=== PATIENT | male | born 1950 | race Caucasian/White ===

== ENCOUNTER 2019-11-01 10:52 | Outpatient (CLI) | payer MEDICARE, SELFPAY ==
--- NOTE | ~2019-11-01 | CT_ITS ---
EXAMINATION: CT lung screening DATE: 11/01/2019 11:22 INDICATION: Personal history of tobacco dependence, current smoker with 40 pack year history TECHNIQUE: Computed tomography (CT) of the chest was performed without intravenous contrast. The dose -length product (DLP) was 104.17 mGy-cm. Automated exposure control and iterative reconstruction tech [employer] were employed. COMPARISON: 08/28/2014 FINDINGS: There is an 8 mm nodule of the left upper lobe on image 44. There is a 3 mm nodule of the l eft upper lobe on image 54. There is a 6 mm nodule of the right upper lobe on image 30. A 4 mm nodule is present in the right upper lobe on image 28. There is severe emphysema. A chronic 7.7 cm bulla is present in the right middle lobe which now demonstrates an air-fluid level. There is no pleural effu shaquille or pneumothorax. Calcified coronary artery atherosclerosis is noted. The heart size is normal. T here are no pathologically enlarged thoracic lymph nodes. There are bridging osteophytes at multiple levels in the spine, consistent with diffuse idiopathic skeletal hyperostosis (DISH). IMPRESSION: 1. Lung-RADS category 4A: Suspicious. Followup with noncontrast low-dose chest CT in 3 months is jose mmended. Reviewed, dictated and finalized at location A. [facility] IMPRESSION: 1. Lung-RADS category 4A: Suspicious. Followup with noncontrast low-dose chest CT in 3 months is recommended.
[2019-11-01 12:39] LABS: Basophils Percent Auto 0.4 % (0.2-1.2); Eosinophils Absolute Auto 0.1 K/mm3 (0-0.3); Eosinophils Percent Auto 0.9 % (0-4.4); Hematocrit 51.7 % (42.0-52.0); Hemoglobin 16.9 g/dL (14.0-18.0); Immature Granulocyte Absolute 0.06 K/mm3 (0.00-0.031); Immature Granulocyte Percent A 0.6 % (0-0.5); Lymphocytes Percent Auto 14.7 % (18.3-44.2); Mean Corpuscular HGB Conc 32.7 g/dl (32-36); Mean Corpuscular Hemoglobin 30.6 pg (26-34); Mean Corpuscular Volume 93.5 fl (80-100); Mean Platelet Volume 10.8 fl (7.4-10.4); Monocytes Absolute Auto 0.9 K/mm3 (0.1-0.6); Monocytes Percent Auto 8.9 % (2.6-8.5); Neutrophils Absolute Auto 7.6 K/mm3 (1.3-6.7); Neutrophils Percent Auto 74.5 % (45.5-73.1); Platelet Count Result 281 k/mm3 (150-375); Red Blood Count 5.53 M/mm3 (4.6-6.20); Red Cell Distribution Width 13.7 % (11.5-14.5); White Blood Count 10.2 K/mm3 (4.5-10.0)
[2019-11-01 12:44] LABS: Alanine Aminotransferase 18 U/L (4-50); Albumin Level 4.2 g/dL (3.5-5.1); Alkaline Phosphatase 72 U/L (38-126); Aspartate Amino Transferase 21 U/L (17-59); Bilirubin,Total 0.5 mg/dL (0.2-1.3); Blood Urea Nitrogen 16 mg/dL (9-20); Calcium 9.2 mg/dL (8.4-10.2); Carbon Dioxide 31 mmol/L (22-30); Chloride 97 mmol/L (98-107); Cholesterol 206 mg/dL (0-200); Estimated Glomerular Filt Rate > 60; Glucose 111 mg/dL (75-110); HDL Direct 72 mg/dL; Potassium 4.1 mmol/L (3.4-5.0); Sodium 136 mmol/L (137-145); Triglycerides 75 mg/dL (<150)
[2019-11-01 12:55] LABS: Creatinine Urine 27.4 mg/dL; LDL Cholesterol Direct 108 mg/dL
[2019-11-01 12:59] LABS: MALB Creatinine Ratio 99.6 mg/g (0-30); Microalbumin Urine Random 27.3 mg/L (0-16.7)
[2019-11-01 13:11] LABS: Vitamin D 25 Hydroxy 18.1 ng/mL
[2019-11-01 13:13] LABS: Prostate Specific Antigen 0.6 ng/mL (< OR = 4.0); Total Triiodothyronine (T3) 1.18 NG/ML (0.97-1.69)
== END 2019-11-01 10:53 | disposition home or self-care (01) ==
PROVIDERS: PCP Family Medicine; Visit Provider Nurse Practitioner Family
DX: Z12.2 Encounter for screening for malignant neoplasm of respiratory organs (principal); Z87.891 Personal history of nicotine dependence; R91.8 Other nonspecific abnormal finding of lung field; I10 Essential (primary) hypertension; R53.83 Other fatigue; Z12.5 Encounter for screening for malignant neoplasm of prostate; Z13.220 Encounter for screening for lipoid disorders; R80.9 Proteinuria, unspecified; E55.9 Vitamin D deficiency, unspecified
CPT/HCPCS: 36415; 80053; 80061; 82043; 82306; 84153; 84439; 84443; 84480; 85025; G0103; G0297

== ENCOUNTER 2019-11-14 14:18 | Outpatient (CLI) | payer MEDICARE, SELFPAY ==
--- NOTE | 2019-11-14 16:13 | WPDPFTINT ---
PFT Interpretation PFT Interpretation: DOS: 11/14/2019 REQUESTING: Rehan Pate MD REASON FOR TESTING: COPD PULMONARY FUNCTION TESTS Results are reproducible. Spirometry: Moderate decrease in FEV1 58% predicted. Normal FVC 98%. Decreased FEV1% 41% predicted consistent with airflow obstruction. No change with bronchodilator. Lung volumes: Increased TLC 144% consistent with hyperinflation. Increased RV 211%, severe air trapping. Airway resistance increased 174%. Diffusion: DLCO is moderately decreased 44%. Flow volume loop: Scooping of the expiratory limb. IMPRESSION: Moderately severe obstructive ventilatory impairment, moderate hyperinflation, severe air trapping, moderate diffusion impairment. No change with bronchodilator. This pattern is consistent with emphysema. Lack of response to bronchodilator should not preclude use if clinically indicated. Ashley Arnold MD
== END 2019-11-14 14:19 | disposition home or self-care (01) ==
PROVIDERS: PCP Family Medicine; Visit Provider Family Medicine
DX: J44.1 Chronic obstructive pulmonary disease with (acute) exacerbation (principal); R94.2 Abnormal results of pulmonary function studies
CPT/HCPCS: 94060; 94726; 94729

== ENCOUNTER 2020-03-14 14:41 | Outpatient (CLI) | payer MEDICARE, SELFPAY ==
--- NOTE | ~2020-03-14 | CT_ITS ---
EXAMINATION:CT chest w con DATE: 03/14/2020 15:25 INDICATION: Solitary lung nodule. TECHNIQUE: Computed tomography (CT) of the chest was performed with 75 mL Omnipaque 350 intravenous c ontrast. Automated exposure control and iterative reconstruction technique were employed. The dose-le ngth product (DLP) was 237.77 mGy-cm. COMPARISON: Chest CT 11/01/2019, 08/28/2014 FINDINGS: There is severe emphysema. There is a fluid-filled bulla in right middle lobe measuring 6.5 x 6.1 x 4.5 cm. There is mild atelectasis in left upper lobe. There is a stable 5 mm nodule in right upper lobe. There is a 7 mm nodule in left upper lobe, stable from 11/01/2019. Calcified left lung no dules are consistent with old granulomatous disease. No pleural effusion. The heart size is normal. T here are coronary artery calcifications. No pericardial effusion. There is a 9 mm cyst in left kidney . There are bridging endplate osteophytes at multiple levels in the spine, consistent with diffuse id iopathic skeletal hyperostosis (DISH). IMPRESSION: 1. Lung-RADS category 2: Benign appearance or behavior. Continue annual screening with noncontrast lo w-dose chest CT in 12 months. Reviewed, dictated and finalized at location A. IMPRESSION: 1. Lung-RADS category 2: Benign appearance or behavior. Continue annual screeni ng with noncontrast low-dose chest CT in 12 months.
[2020-03-14 15:11] LABS: Estimated Glomerular Filt Rate > 60
== END 2020-03-14 14:42 | disposition home or self-care (01) ==
PROVIDERS: PCP Family Medicine; Visit Provider Family Medicine
DX: R91.1 Solitary pulmonary nodule (principal)
CPT/HCPCS: 36415; 71260; Q9967

== ENCOUNTER 2021-04-29 07:42 | Outpatient (CLI) | payer MEDICARE, SELFPAY ==
--- NOTE | ~2021-04-29 | CT_ITS ---
EXAMINATION: CT diagnostic chest wo con DATE: 04/29/2021 08:05 INDICATION: Solitary pulmonary nodule TECHNIQUE: Computed tomography (CT) of the chest was performed without intravenous contrast. The dose -length product (DLP) was 101.56 mGy-cm. Automated exposure control and iterative reconstruction tech [id number] were employed. COMPARISON: 03/14/2020, 11/01/2019 FINDINGS: There is severe emphysema. There are stable 8 mm nodules in the left upper lobe. No new pul monary nodules are identified. There is no pleural effusion or pneumothorax. A fluid-filled bulla of the right middle lobe has decreased in size measuring approximately 5.3 x 2.3 cm, previously 6.5 x 6. 1 cm. No pathologically enlarged thoracic lymph nodes are identified. The heart size is normal. Calci fied coronary artery atherosclerosis is noted. There is moderate thoracic spondylosis. IMPRESSION: 1. Stable left upper lobe nodules, consistent with old granulomatous disease. 2. Severe emphysema. Reviewed, dictated and finalized at location B.
== END 2021-04-29 07:43 | disposition home or self-care (01) ==
LOC: ANHIMG 07:48
PROVIDERS: PCP Family Medicine; Visit Provider Nurse Practitioner
DX: J43.9 Emphysema, unspecified (principal); R91.8 Other nonspecific abnormal finding of lung field
CPT/HCPCS: 71250

== ENCOUNTER 2021-12-19 12:42 | Outpatient (CLI) | payer MEDICARE, SELFPAY ==
--- NOTE | 2021-12-19 | ECHO_ITS ---
Patient Info Name: Alfonso Avila Age: 71 years : 1950 Gender: Male Ht: 72 in Wt: 180 lbs BSA: 2.04 m2 HR: 87 bpm BP: 116 / 67 mmHg Heart Rhythm: Sinus Rhythm Technical Quality: Poor Exam Date: 12/19/2021 1:03 PM Exam Location: [facility] Patient Status: Outpatient Admit Date: 12/19/2021 Staff Ordering Physician: Chaz, Marybeth [employer] Administrator: Whit Santos RDCS Attending Provider: Chaz, Marybeth CABAN Referring Physician: Chaz ESTRADA; Exam Type: CA echo doppler color flow Study Info Indications R06.09 - Other forms of dyspnea Complete two-dimensional, color flow and Doppler transthoracic echocardiogram is performed. Reason for Poor Study: poor echocardiographic windows Summary 1. Complete two-dimensional, color flow and Doppler transthoracic echocardiogram is performed. 2. Technically difficult study with limited views. 3. Right ventricular chamber dimension is upper limits of normal. 4. There is no aortic valve stenosis with a peak velocity of 193 cm/s, mean gradient of 8 mmHg, and aortic valve area of 2.1 cm2. 5. Left ventricular chamber dimension is normal. 6. Left ventricular systolic function is normal, estimated at 60-65%. 7. There is mildly increased left ventricular wall thickness. 8. The left ventricular diastolic function is grade I diastolic dysfunction. 9. Right atrial chamber dimension is mildly enlarged. 10. There is trace tricuspid valve regurgitation. 11. No pulmonary hypertension, estimated pulmonary arterial systolic pressure is 15 mmHg. Left Ventricle Technically difficult study with limited views. Left ventricular chamber dimension is normal. Left ventricular systolic function is normal, estimated at 60-65%. There is mildly increased left ventricular wall thickness. The left ventricular diastolic function is grade I diastolic dysfunction. Right Ventricle Right ventricular chamber dimension is upper limits of normal. Right ventricular systolic function is normal. Left Atria Left atrial chamber dimension is normal. Right Atria Right atrial chamber dimension is mildly enlarged. Aortic Valve There is no aortic valve stenosis with a peak velocity of 193 cm/s, mean gradient of 8 mmHg, and aortic valve area of 2.1 cm2. The aortic valve is not well visualized. There is no aortic valve stenosis. There is no aortic valve regurgitation. Pulmonic Valve The pulmonic valve is not well visualized. Mitral Valve The mitral valve has normal leaflets. There is no mitral valve regurgitation. The mitral valve annulus is mildly calcified. Tricuspid Valve The tricuspid valve leaflets are normal. There is trace tricuspid valve regurgitation. No pulmonary hypertension, estimated pulmonary arterial systolic pressure is 15 mmHg. Pericardium/Pleural The pericardium appears not well visualized. There is trivial pericardial effusion. Inferior Vena Cava Normal inferior vena cava with >50% collapse upon inspiration consistent with normal right atrial pressure, 5 mmHg. Aorta The aortic root size at the sinus of Valsalva is normal. There is mild aortic atherosclerosis. Left Ventricular Outflow Tract Name Value Normal LVOT 2D LVOT Diameter
== END 2021-12-19 12:43 | disposition home or self-care (01) ==
LOC: ANHCARD 12:45
PROVIDERS: PCP Family Medicine; Visit Provider Physician Assistant
DX: R06.09 Other forms of dyspnea (principal); I51.7 Cardiomegaly
CPT/HCPCS: 93306